=== PATIENT | male | born 1965 | race Caucasian/White ===

== ENCOUNTER → 2018-07-31 | Outpatient (CLI) | payer BC | LOC: M.RAD 11:15 | DX: M48.54XD Collapsed vertebra, not elsewhere classified, thoracic region, subsequent encounter for fracture with routine healing (principal); G50.1 Atypical facial pain; J01.00 Acute maxillary sinusitis, unspecified ==

== ENCOUNTER 2021-03-14 19:39 | Emergency (ER) | payer BC ==
[~2021-03-14] VITALS: Ht 182.9 cm; Wt 99.8 kg
[2021-03-14] MEDS ORDERED: NOHOMEMEDICATIONS (19:54)
[2021-03-14] MEDS ORDERED: PREDNISONE 20 M20 MG PO (20:50)
[2021-03-14 20:59] VITALS: BP 138/85
== END 2021-03-14 21:00 | disposition home or self-care (01) ==
LOC: M.ERS 19:39
DX: T63.481A Toxic effect of venom of other arthropod, accidental (unintentional), initial encounter (principal); Z90.49 Acquired absence of other specified parts of digestive tract; Y92.89 Other specified places as the place of occurrence of the external cause